=== PATIENT | female | born 1940 | race African-American/Black ===

== ENCOUNTER 2016-10-13 20:09 | Emergency (ER) | payer MEDICARE, OTHER, BC ==
--- NOTE | ~2016-10-13 | CT2 ---
[facility] A Service of [facility] RADIOLOGY TEXT RESULTS PATIENT: MALIK MARTINEZ LOCATION: [facility] : 42 UNIT #: [id number] AGE: [address]: Bart Lopez MD SEX: F ORDER DR: [id number] [facility] [address] [place], [place] [address] [id number] MR#: [id number] #: [id number] NAME: MALIK MARTINEZ. : 1940 SEX: F STUDY DATE/TIME: 10/13/2016 22:11 UNIT: [facility] ROOM: STUDY DESCRIPTION: CT Abd and Pelv W Cont Attending Physician: Jose Lopez M.D. Referring Physician: Sanket Barr M.D. Ordering Physician: Hussein Caputo D.O. Primary Care Physician: Sanket Barr M.D. MEDICAL IMAGING REPORT This report is preliminary unless electronic signature is present EXAMINATION CT abdomen and pelvis with contrast DATE 10/13/2016 HISTORY Right sided abdominal pain for 4 days. COMPARISON None. PROCEDURE 5 mm axial images from lung bases through lesser trochanters after intravenous and enteric contrast administration. Sagittal and coronal reformatted images were obtained. This CT exam was performed with one or more of the following radiation dose reduction techniques: automatic control, adjustment of mA and/or kV according to patient size, and iterative reconstruction. FINDINGS ABDOMEN FINDINGS: The appendix is normal. There is very mild wall thickening in the region of the ascending colon, raising the possibility of infectious or inflammatory colitis in the appropriate clinical context. There was no evidence of high-grade large or small bowel obstruction. Small umbilical hernia contains only fat. Infraumbilical hernia measuring 3.2 x 5.9 x 4.0 cm contains nonobstructing noninflamed small bowel. Lung bases are free of consolidation. Benign calcified granuloma is present in the right middle lobe. Cholecystectomy changes are present. The liver, spleen, pancreas, adrenals and kidneys are within normal limits. There is moderate calcific atherosclerosis in the proximal [facility] A Service of [facility] RADIOLOGY TEXT RESULTS PATIENT: MALIK MARTINEZ LOCATION: [facility] : 42 UNIT #: [id number] AGE: [address]: Bart Lopez MD SEX: F ORDER DR: bilateral renal arteries and within the infrarenal abdominal aorta. PELVIS FINDINGS: Urinary bladder and rectum are normal. Presumed hysterectomy. There is lumbar levoscoliosis. Multilevel advanced degenerative disc and endplate changes are present in the lumbar spine. Advanced degenerative changes of bilateral sacroiliac joints. Severe facet arthropathy at L4-5 with grade 1 anterolisthesis L4 upon L5. No acute osseous abnormalities are identified. IMPRESSION 1. Mild generalized ascending colonic wall thickening may represent changes of infectious or inflammatory colitis. The appendix is normal. No evidence of high-grade large or small bowel obstruction. 2. Cholecystectomy and presumed hysterectomy. 3. Advanced degenerative changes of lumbar spine with levoscoliosis and advance degenerative changes of the bilateral sacroiliac joints. Grade 1 anterolisthesis of L4 upon L5 thought to be on the basis of degenerative change. 4. Infraumbilical hernia containing nonobstructed noninflamed small bowel. Small umbilical hernia contains only fat. Dictated by... Terra Garner M.D. THIS IS AN ELECTRONICALLY VERIFIED REPORT Terra Garner M.D. at 10/14/2016 4:20 AM LARISSA/hoda TD: 10/14/2016 00:56 JOB #: [id number] MEDICAL IMAGING REPORT Page 1 of 1 COPY
[2016-10-13 20:11] LABS: URINE SOURCE CLEAN CATCH
[2016-10-13 20:16] LABS: URINE APPEARANCE CLEAR; URINE BILIRUBIN NEG (NEG); URINE BLOOD NEG (NEG); URINE COLOR YELLOW; URINE GLUCOSE >1000 MG/DL (NEG); URINE KETONE 1+ (NEG); URINE LEUKOCYTE ESTERASE NEG (NEG); URINE NITRATE NEG (NEG); URINE PROTEIN 1+ (NEG); URINE SPECIFIC GRAVITY 1.036 (1.003-1.035); URINE UROBILINOGEN 0.2 MG/DL (NEG)
[2016-10-13 20:18] LABS: CULTURE INDICATED? YES; U HYALINE CASTS AUWI 0-2 /[LPF]; URINE BACTERIA AUWI 1+ (NEGATIVE); URINE SQUAMOUS EPITHELIAL CELL FEW /[HPF]
[2016-10-13 20:19] LABS: BASOPHIL# 0.1 X10e3 (0-0.3); BASOPHIL% 0.9 % (0-2.5); EOSINOPHIL% 0.2 % (0.0-7.0); HEMATOCRIT 43.2 % (35.0-45.0); HEMOGLOBIN 13.4 gm/dL (12.0-16.0); LYMPHOCYTE# 3.2 X10e3 (1.0-3.5); LYMPHOCYTE% 27.2 % (17.0-45.0); MEAN CELL VOLUME 82.1 FL (83-96); MEAN CORPUSCULAR HEMOGLOBIN 25.5 PG (28-34); MEAN PLATELET VOLUME 9.4 FL (6.5-11.5); MONOCYTE# 1.1 X10e3 (0-1.0); MONOCYTE% 9.7 % (3.0-12.0); NEUTROPHIL# 7.3 X10e3 (1.5-7.1); PLATELET COUNT 269 X10e3 (140-420); RED BLOOD COUNT 5.26 X10e (3.90-5.30); RED CELL DISTRIBUTION WIDTH 13.3 % (11.0-15.5); WHITE BLOOD COUNT 11.8 X10e3 (4.0-10.5)
[2016-10-13 20:20] LABS: DIFF IND NO
[2016-10-13 20:38] LABS: ALBUMIN SERUM 4.3 g/dL (3.5-5.0); BILIRUBIN, DIRECT 0.1 mg/dL (0.0-0.2); BILIRUBIN,INDIRECT 0.7 mg/dL (0.0-0.9); BILIRUBIN,TOTAL 0.8 mg/dL (0.2-2.0); CALCIUM SERUM 9.4 mg/dL (8.4-10.2); GLOM FILT RATE Estimated 63.9 mL/min (>60); PROTEIN TOTAL SERUM 7.8 g/dL (6.0-8.3)
== END 2016-10-13 23:30 | disposition home or self-care (01) ==
LOC: CED 20:09
PROVIDERS: Emergency Medicine
DX: A09 Infectious gastroenteritis and colitis, unspecified (principal); N39.0 Urinary tract infection, site not specified; E11.9 Type 2 diabetes mellitus without complications; I10 Essential (primary) hypertension; F17.200 Nicotine dependence, unspecified, uncomplicated; Z90.49 Acquired absence of other specified parts of digestive tract; Z90.710 Acquired absence of both cervix and uterus; Z88.0 Allergy status to penicillin; Z91.040 Latex allergy status
CPT/HCPCS: 36415; 74177; 80048; 80076; 81003; 83605; 83690; 85025; 87086; 96374; 96375; 99284; J2270; J2405; Q9967